=== PATIENT | female | born 1995 | race Caucasian/White ===

== ENCOUNTER 2017-02-01 08:00 | Outpatient (CLI) | payer OTHER | END 2017-02-01 08:01 | disposition home or self-care (01) | DX: R30.0 Dysuria (principal) ==

== ENCOUNTER 2017-05-22 09:44 | Outpatient (CLI) | payer OTHER ==
[2017-05-22 18:49] LABS: BASOPHILS % (AUTO) 0.4 %; EOSINOPHILS # (AUTO) 0.1 10^3/uL (0.0-0.7); HCT - HEMATOCRIT 39.4 % (37.0-47.0); HGB - HEMOGLOBIN 13.3 g/dL (12.0-16.0); LYMPHOCYTES # (AUTO) 1.4 10^3/uL (1.5-3.5); LYMPHOCYTES % (AUTO) 27.2 %; MEAN CORPUSCULAR HEMOGLOBIN 31.2 pg (27.0-31.0); MEAN CORPUSCULAR HGB CONC 33.6 g/dL (32.0-36.0); MEAN PLATELET VOLUME 7.3 fL (7.9-10.8); MONOCYTES # (AUTO) 0.4 10^3/uL (0.0-1.0); MONOCYTES % (AUTO) 7.9 %; NEUTROPHILS # (AUTO) 3.3 10^3/uL (1.5-6.6); NEUTROPHILS % (AUTO) 62.5 %; RED BLOOD COUNT 4.24 10^6/uL (4.20-5.40); RED CELL DISTRIBUTION WIDTH 12.8 % (12.0-15.0); UNCORRECTED WHITE BLOOD COUNT 5.3 x10^3/uL; WHITE BLOOD COUNT 5.3 x10^3/uL (4.8-10.8)
[2017-05-22 19:46] LABS: THYROID STIMULATING HORMONE 0.67 uIU/mL (0.34-5.60)
== END 2017-05-22 09:45 | disposition home or self-care (01) ==
LOC: LAB.F 09:44
PROVIDERS: ATTEND Naturopath
DX: L65.9 Nonscarring hair loss, unspecified (principal)
CPT/HCPCS: 36415; 84439; 84443; 84481; 85025

== ENCOUNTER 2017-10-31 13:17 | Outpatient (CLI) | payer OTHER ==
[2017-10-31 18:46] LABS: ALBUMIN 4.4 g/dL (3.2-5.5); ALBUMIN/GLOBULIN RATIO 1.6 (1.0-2.2); BILIRUBIN,TOTAL 0.6 mg/dL (0.2-1.0); CALCIUM 9.3 mg/dL (8.5-10.3); CREATININE 0.7 mg/dL (0.4-1.0); TOTAL PROTEIN 7.1 g/dL (6.7-8.2)
[2017-10-31 18:56] LABS: THYROID STIMULATING HORMONE 0.88 uIU/mL (0.34-5.60)
[2017-10-31 18:58] LABS: FREE T4 (FREE THYROXINE) 0.73 ng/dL (0.58-1.64)
[2017-10-31 19:03] LABS: TOTAL T3 0.77 ng/mL (0.87-1.78)
[2017-11-01 11:01] LABS: PROGESTERONE 0.5 ng/mL
== END 2017-10-31 13:18 | disposition home or self-care (01) ==
LOC: LAB.F 13:17
PROVIDERS: ATTEND Naturopath
DX: L65.9 Nonscarring hair loss, unspecified (principal); Z13.1 Encounter for screening for diabetes mellitus; Z13.228 Encounter for screening for other metabolic disorders; Z13.29 Encounter for screening for other suspected endocrine disorder; Z97.5 Presence of (intrauterine) contraceptive device
CPT/HCPCS: 36415; 80053; 81599; 82627; 82672; 84144; 84403; 84439; 84443; 84480